=== PATIENT | female | born 1975 | race African-American/Black ===

== ENCOUNTER 2016-07-28 09:45 | Emergency (ER) | payer MEDICAID ==
[2016-07-28 14:10] LABS: Hematocrit 42 % (35-47); Hemoglobin 14.2 g/dl (12.0-16.0); Mean Corpuscular HGB Conc 34 g/dl (31-36); Mean Corpuscular Hemoglobin 30 pg (27-31); Mean Corpuscular Volume 89 fL (80-97); Mean Platelet Volume 7 um3 (7.4-10.4); Red Blood Count 4.75 10^6/ul (4.0-5.4); Red Cell Distribution Width 13 % (10.5-15); White Blood Count 8.6 10^3/ul (3.5-10.8)
[2016-07-28 14:13] LABS: Urine Bacteria Absent (Absent); Urine Bilirubin Negative (Negative); Urine Glucose Negative (Negative); Urine Nitrite Negative (Negative)
[2016-07-28 14:22] LABS: ALT 16 U/L (7-52); AST 17 U/L (13-39); Albumin 4.9 g/dL (3.2-5.2); Alkaline Phosphatase 56 U/L (34-104); Anion Gap 6 mmol/L (2-11); BUN/Creatinine Ratio 11.8 (8-20); Blood Urea Nitrogen 8 mg/dL (6-24); C Reactive Protein < 1.00 mg/L (< 5.00); CO2 Carbon Dioxide 31 mmol/L (22-32); Calcium 9.8 mg/dL (8.6-10.3); Chloride 99 mmol/L (101-111); EGFR African American 122.6 (>60); EGFR Non-African American 95.4 (>60); Globulin 3.7 g/dL (2-4); Glucose 83 mg/dL (70-100); Lipase 30 U/L (11.0-82.0); Potassium 3.1 mmol/L (3.5-5.0); Sodium 136 mmol/L (133-145); Total Protein 8.6 g/dL (6.4-8.9)
--- NOTE | 2016-07-28 14:25 | RAD ---
INDICATION: Right flank abdominal pain. COMPARISON: There are no prior studies available for comparison. TECHNIQUE: A CT scan of the abdomen and pelvis was performed without intravenous or oral contrast. Contiguous axial sections were obtained from the lung bases through the symphysis pubis. Images were reconstructed in the coronal and sagittal planes. FINDINGS: The lung bases are clear. No pleural effusion is present. The liver and spleen are normal in size without significant focal abnormality on this noncontrast study. The gallbladder appears contracted. No calcific gallstones are seen. The pancreas appears to be within normal limits. The adrenal glands and kidneys are normal in size. There is a small 2 mm calculus present in the upper pole of the right kidney no hydronephrosis is seen. No ureteral or bladder calculi are seen. The aorta is normal in caliber without significant calcific plaque. No significant enlarged retroperitoneal lymph nodes are seen. The stomach, small and large bowel appear nondistended. The appendix is within normal limits. There is mild descending and sigmoid diverticulosis without evidence for diverticulitis. There is a periumbilical hernia containing fat. The uterus is retroverted and mildly enlarged. No free intraperitoneal air or fluid is seen. No fracture is seen. IMPRESSION: SMALL NONOBSTRUCTING RIGHT RENAL CALCULUS, NO EVIDENCE FOR HYDRONEPHROSIS.
[2016-07-28] MEDS ORDERED: cefTRIAXone(*) 1 GM in NS 0.9% 50 ML* 50 ML IVPB ONE (15:10)
--- NOTE | 2016-07-28 17:22 | RAD ---
INDICATION: Right lower quadrant pain. COMPARISON: Comparison is made with a prior CT of the abdomen and pelvis of the same date. TECHNIQUE: Multiple real-time transabdominal images of the pelvis were obtained. FINDINGS: The uterus is mildly enlarged and heterogeneous in echogenicity. The uterus measured 10.7 x 4.6 x 5.7 cm. The endometrial echo is abnormally thickened measuring 1.7 cm in thickness. The right ovary measured 3.3 x 2.0 x 1.9 cm. The left ovary measured 3.2 x 2.0 x 2.4 cm. There is vascular flow within both ovaries. No free intraperitoneal fluid is seen. IMPRESSION: 1. MILDLY ENLARGED UTERUS. 2. ABNORMALLY THICKENED ENDOMETRIUM. RECOMMEND A FOLLOW-UP TRANSVAGINAL PELVIC ULTRASOUND IN ONE MONTHS TIME FOR FURTHER CHARACTERIZATION.
[2016-07-28] MEDS ORDERED: Potassium Chlor TAB* 20 MEQ TAB.ER PO ONE (17:31)
[2016-07-28] MEDS ORDERED: Sulfamethox/Trimethoprim DS 800/160* TAB PO ONE (17:31)
--- NOTE | 2016-07-28 17:37 | ED ---
Janny Pathak Erika, scribed for Germain Siddiqui MD on 07/28/16 at 1356 . GI/ HPI - HPI Summary HPI Summary: Patient is a 40-year-old female presenting to the ED with a CC of intermittent right flank and abdominal pain. Patient reports that she developed burning with urination and frequent urination about 6 days ago. Burning with urination has resolved, however patient then developed intermittent right flank pain, right- sided abdominal pain, and, less frequently, left-sided abdominal pain. She rates pain a 7/10, and states it was not alleviated by 600 mg ibuprofen. She declines pain medication at this time. Associated symptoms include nausea, decreased appetite, and constipation. Pt reports she had a small BM last night. She denies fever and blood in stool. LNMP 07/14/2016. Patient does report some yellow vaginal discharge, and states she is not concerned about STIs. Hx UTIs, kidney stones, HTN, HLD, GERD, depression, and asthma. Hx surgery for ectopic 3 years ago. - History of Current Complaint Chief Complaint: EDAbdPain Time Seen by Provider: 07/28/16 13:24 Stated Complaint: ABD PAIN Hx Obtained From: Patient Onset/Duration: Started Days Ago, Atraumatic, Still Present Timing: Intermittent Severity: Moderate Pain Intensity: 7 Location of Pain: RLQ, Flank - R Pain Radiates to: LLQ Associated Signs and Symptoms: Positive: Nausea, Constipation, Change in Appetite, UTI Symptoms. Negative: Blood w/Stool, Fever Additional Signs & Symptoms: Positive: Vaginal Discharge Alleviating Factor(s): Nothing - Allergy/Home Medications Allergies/Adverse Reactions: Allergies Allergy/AdvReac Type Severity Reaction Status Date / Time Hydrocodone Allergy Difficulty Verified 07/28/16 10:11 Breathing ENVIROMENTAL Allergy Difficulty Uncoded 07/28/16 10:09 Breathing PMH/Surg Hx/FS Hx/Imm Hx Cardiovascular History: Reports: Hx Hypercholesterolemia, Hx Hypertension Respiratory History: Reports: Hx Asthma GI History: Reports: Hx Gastroesophageal Reflux Disease History: Reports: Hx Kidney Stones, Other Problems/Disorders - UTIs Psychiatric History: Reports: Hx Depression Infectious Disease History: Denies: Traveled Outside the [place] in Last 30 Days - Family History Known Family History: Positive: Cardiac Disease, Hypertension, Diabetes - Social History Occupation: Unemployed Alcohol Use: Occasionally Hx Substance Use: No Substance Use Type: Reports: None Hx Tobacco Use: No Smoking Status (MU): Never Smoked Tobacco Review of Systems Negative: Fever Positive: Abdominal Pain, Nausea - with decreased appetite, Other - constipation Positive: burning - resolved, discharge - yellow vaginal, frequency, flank pain - R All Other Systems Reviewed And Are Negative: Yes Physical Exam Triage Information Reviewed: Yes Vital Signs On Initial Exam: Initial Vitals Temp Pulse Resp BP Pulse Ox 98.9 F 98 15 151/79 99 07/28/16 10:04 07/28/16 10:04 07/28/16 10:04 07/28/16 10:04 07/28/16 10:04 Vital Signs Reviewed: Yes Appearance: Positive: Well-Appearing, No Pain Distress Skin: Positive: Warm, Skin Color Reflects Adequate Perfusion, Dry Head/Face: Positive: Normal Head/Face Inspection Eyes: Positive: EOMI, LILIAN ENT: Positive: Normal ENT inspection Neck: Positive: Supple, Nontender Respiratory/Lung Sounds: Positive: Clear to Auscultation, Breath Sounds Present Cardiovascular: Positive: RRR Abdomen Description: Positive: Soft, Other: - Right flank tenderness. Mild right -sided abdominal tenderness with no rebound Bowel Sounds: Positive: Present Pelvic Exam: Positive: other - Normal, non-tender, no abnormal discharge Musculoskeletal: Positive: Normal, Strength/ROM Intact Neurological: Positive: Normal, Sensory/Motor Intact, Alert, Oriented to Person Place, Time Psychiatric: Positive: Affect/Mood Appropriate Diagnostics - Vital Signs Vital Signs Temp Pulse Resp BP Pulse Ox 07/28/16 13:04 97.7 F 85 18 133/81 98 07/28/16 11:28 98.4 F 90 17 141/84 98 07/28/16 10:04 98.9 F 98 15 151/79 99 - Laboratory Lab Results: Lab Results 07/28/16 07/28/16 07/28/16 Range/Units 11:34 13:35 13:35 WBC 8.6 (3.5-10.8) 10^3/ul RBC 4.75 (4.0-5.4) 10^6/ul Hgb 14.2 (12.0-16.0) g/dl Hct 42 (35-47) % MCV 89 (80-97) fL MCH 30 (27-31) pg MCHC 34 (31-36) g/dl RDW 13 (10.5-15) % Plt Count 345 (150-450) 10^3/ul MPV 7 L (7.4-10.4) um3 Neut % (Auto) 58.4 (38-83) % Lymph % (Auto) 34.6 (25-47) % Leslie % (Auto) 5.6 (1-9) % Eos % (Auto) 1.0 (0-6) % Baso % (Auto) 0.4 (0-2) % Absolute Neuts (auto) 5.0 (1.5-7.7) 10^3/ul Absolute Lymphs (auto) 3.0 (1.0-4.8) 10^3/ul Absolute Monos (auto) 0.5 (0-0.8) 10^3/ul Absolute Eos (auto) 0.1 (0-0.6) 10^3/ul Absolute Basos (auto) 0 (0-0.2) 10^3/ul Absolute Nucleated RBC 0.01 10^3/ul Nucleated RBC % 0.1 INR (Anticoag Therapy) 0.95 (0.89-1.11) APTT 28.3 (26.0-36.3) seconds Sodium (133-145) mmol/L Potassium (3.5-5.0) mmol/L Chloride (101-111) mmol/L Carbon Dioxide (22-32) mmol/L Anion Gap (2-11) mmol/L BUN (6-24) mg/dL Creatinine (0.51-0.95) mg/dL Est GFR ( Amer) (>60) Est GFR (Non-Af Amer) (>60) BUN/Creatinine Ratio (8-20) Glucose (70-100) mg/dL Lactic Acid (0.5-2.0) mmol/L Calcium (8.6-10.3) mg/dL Total Bilirubin (0.2-1.0) mg/dL AST (13-39) U/L ALT (7-52) U/L Alkaline Phosphatase (34-104) U/L C-Reactive Protein (< 5.00) mg/L Total Protein (6.4-8.9) g/dL Albumin (3.2-5.2) g/dL Globulin (2-4) g/dL Albumin/Globulin Ratio (1-3) Lipase (11.0-82.0) U/L Beta HCG, Quant mIU/mL Urine Color Yellow Urine Appearance Cloudy Urine pH 7.0 (5-9) Ur Specific [place] 1.012 (1.010-1.030) Urine Protein Negative (Negative) Urine Ketones Trace H (Negative) Urine Blood 1+ H (Negative) Urine Nitrate Negative (Negative) Urine Bilirubin Negative (Negative) Urine Urobilinogen Negative (Negative) Ur Leukocyte Esterase 3+ H (Negative) Urine WBC (Auto) 3+(>20/hpf) H (Absent) Urine RBC (Auto) Trace(0-2/hpf) (Absent) Ur Squamous Epith Cells Present H (Absent) Urine Bacteria Absent (Absent) Urine Glucose Negative (Negative) 07/28/16 07/28/16 Range/Units 13:35 13:35 WBC (3.5-10.8) 10^3/ul RBC (4.0-5.4) 10^6/ul Hgb (12.0-16.0) g/dl Hct (35-47) % MCV (80-97) fL MCH (27-31) pg MCHC (31-36) g/dl RDW (10.5-15) % Plt Count (150-450) 10^3/ul MPV (7.4-10.4) um3 Neut % (Auto) (38-83) % Lymph % (Auto) (25-47) % Leslie % (Auto) (1-9) % Eos % (Auto) (0-6) % Baso % (Auto) (0-2) % Absolute Neuts (auto) (1.5-7.7) 10^3/ul Absolute Lymphs (auto) (1.0-4.8) 10^3/ul Absolute Monos (auto) (0-0.8) 10^3/ul Absolute Eos (auto) (0-0.6) 10^3/ul Absolute Basos (auto) (0-0.2) 10^3/ul Absolute Nucleated RBC 10^3/ul Nucleated RBC % INR (Anticoag Therapy) (0.89-1.11) APTT (26.0-36.3) seconds Sodium 136 (133-145) mmol/L Potassium 3.1 L (3.5-5.0) mmol/L Chloride 99 L (101-111) mmol/L Carbon Dioxide 31 (22-32) mmol/L Anion Gap 6 (2-11) mmol/L BUN 8 (6-24) mg/dL Creatinine 0.68 (0.51-0.95) mg/dL Est GFR ( Amer) 122.6 (>60) Est GFR (Non-Af Amer) 95.4 (>60) BUN/Creatinine Ratio 11.8 (8-20) Glucose 83 (70-100) mg/dL Lactic Acid 0.8 (0.5-2.0) mmol/L Calcium 9.8 (8.6-10.3) mg/dL Total Bilirubin 0.60 (0.2-1.0) mg/dL AST 17 (13-39) U/L ALT 16 (7-52) U/L Alkaline Phosphatase 56 (34-104) U/L C-Reactive Protein < 1.00 (< 5.00) mg/L Total Protein 8.6 (6.4-8.9) g/dL Albumin 4.9 (3.2-5.2) g/dL Globulin 3.7 (2-4) g/dL Albumin/Globulin Ratio 1.3 (1-3) Lipase 30 (11.0-82.0) U/L Beta HCG, Quant < 0.60 mIU/mL Urine Color Urine Appearance Urine pH (5-9) Ur Specific [place] (1.010-1.030) Urine Protein (Negative) Urine Ketones (Negative) Urine Blood (Negative) Urine Nitrate (Negative) Urine Bilirubin (Negative) Urine Urobilinogen (Negative) Ur Leukocyte Esterase (Negative) Urine WBC (Auto) (Absent) Urine RBC (Auto) (Absent) Ur Squamous Epith Cells (Absent) Urine Bacteria (Absent) Urine Glucose (Negative) Result Diagrams: 07/28/16 13:35 07/28/16 13:35 Lab Statement: Any lab studies that have been ordered have been reviewed, and results considered in the medical decision making process. - CT CT A/P CT Interpretation Completed By: Radiologist - IMPRESSION: SMALL NONOBSTRUCTING RIGHT RENAL CALCULUS, NO EVIDENCE FOR HYDRONEPHROSIS. - Ultrasound No standard instances Ultrasound Interpretation Completed By: Radiologist - Pelvic US - IMPRESSION: 1. MILDLY ENLARGED UTERUS. 2. ABNORMALLY THICKENED ENDOMETRIUM. RECOMMEND A FOLLOW-UP TRANSVAGINAL PELVIC ULTRASOUND IN ONE MONTHS TIME FOR FURTHER CHARACTERIZATION. Re-Evaluation - Re-Evaluation First Eval Re-Evaluation Time: 14:54 Comment: Discussed lab and imaging results with patient. Will perform pelvic exam Second Eval Re-Evaluation Time: 17:27 Comment: Discussed additional results with patient GIGU Course/Dx - Course Course Of Treatment: NO CRITICAL CARE TIME Assessment/Plan: VAGINAL SWABS PENDING AT DISCHARGE. PATIENT WILL NEED THESE RESULTS AND TREATMENT IF POSITIVE. RX BACTRIM FOR UTI. F/U WITH PMD SCHEDULED FOR 08/12/16. SHE WILL CALL HER PMD TO OBTAIN THE VAGINAL SWAB RESULTS. DISCHARGE HOME STABLE. - Diagnoses Provider Diagnoses: Abdominal pain, UTI (urinary tract infection) Discharge - Discharge Plan Condition: Stable Disposition: HOME Patient Education Materials: Abdominal Pain (ED), Urinary Tract Infection in Women (ED) Referrals: No Primary Care Phys,NOPCP [Primary Care Provider] - Additional Instructions: FOLLOW UP WITH YOUR DOCTOR SCHEDULED. DISCUSS YOUR ULTRASOUND RESULTS WITH YOUR DOCTOR TO GET A REPEAT ULTRASOUND IN ONE MONTH. YOU STILL HAVE VAGINAL SWAB LAB RESULTS PENDING. CALL YOU DOCTOR TO OBTAIN THESE RESULTS. RETURN TO THE EMERGENCY DEPARTMENT FOR ANY WORSENING OF YOUR CONDITION; PAIN, FEVER, YOU FEEL ILL OR QUESTIONS OR CONCERNS. The documentation as recorded by the Janny milner Erika accurately reflects the service I personally performed and the decisions made by me, Germain Siddiqui MD.
[2016-07-28 18:04] VITALS: BP 144/77
--- NOTE | 2016-07-30 16:35 | ED ---
Progress - Progress Note Progress Note: Pt's vaginal cx reveals BV - she was d/c'd w/ bactrim for UTI/stones. She reports no change in sx - will start flagyl and have her f/u w/ PCP. Education about causes for BV and prevention - pt admits she's been changing sanitary products frequently and hormones are shifting - will take preventative measures for future care. Also reviewed danger s/sx of when to return to ED - pt agrees w / plan. Flagyl to [facility]. Re-Evaluation - Re-Evaluation First Eval Re-Evaluation Time: 14:54 Comment: Discussed lab and imaging results with patient. Will perform pelvic exam Second Eval Re-Evaluation Time: 17:27 Comment: Discussed additional results with patient Course/Dx - Course Course Of Treatment: NO CRITICAL CARE TIME - Diagnoses Provider Diagnoses: Abdominal pain, UTI (urinary tract infection)
== END 2016-07-28 18:03 | disposition home or self-care (01) ==
LOC: ED 09:45
DX: N39.0 Urinary tract infection, site not specified (principal); R11.0 Nausea; R10.30 Lower abdominal pain, unspecified; K59.00 Constipation, unspecified
CPT/HCPCS: 36415; 74176; 76856; 80053; 81003; 81015; 83605; 83690; 84702; 85025; 85610; 85730; 86140; 87086; 87480; 87491; 87510; 87591; 87661; 99283; A9270-GY; J0696

== ENCOUNTER 2017-05-05 17:22 | Emergency (ER) | payer OTHER ==
[2017-05-05] MEDS ORDERED: NS 0.9% 1000 ML* 1,000 ML IV ONE (18:57)
[2017-05-05] MEDS ORDERED: Ondansetron INJ* 2 MG/ML VIAL IV ONE (18:57)
[2017-05-05 19:13] LABS: ABS Basophils 0.1 10^3/ul (0-0.2); ABS Eosinophils 0.2 10^3/ul (0-0.6); ABS Lymphocytes 2.1 10^3/ul (1.0-4.8); ABS Monocytes 0.4 10^3/ul (0-0.8); ABS Neutrophils 4.8 10^3/ul (1.5-7.7); ABS Nucleated RBC 0 10^3/ul; Eosinophil % 2.7 % (0-6); Hematocrit 41 % (35-47); Hemoglobin 13.9 g/dl (12.0-16.0); Lymphocyte % 28.2 % (25-47); Mean Corpuscular HGB Conc 34 g/dl (31-36); Mean Corpuscular Hemoglobin 30 pg (27-31); Mean Corpuscular Volume 90 fL (80-97); Mean Platelet Volume 6 um3 (7.4-10.4); Nucleated Red Blood Cells % 0.1; Platelet Count 383 10^3/ul (150-450); Red Blood Count 4.57 10^6/ul (4.0-5.4); Red Cell Distribution Width 13 % (10.5-15); White Blood Count 7.6 10^3/ul (3.5-10.8)
--- NOTE | 2017-05-05 19:22 | RAD ---
INDICATION: Near syncope. COMPARISON: There are no prior studies available for comparison. TECHNIQUE: Contiguous axial sections of the brain were obtained from the skull base to the vertex without contrast. FINDINGS: The ventricles, cisterns and sulci are within normal limits. There is a cavum vergae present consistent with normal variation. No significant focal abnormality or mass effect is seen. There is no evidence for hemorrhage. No significant focal osseous abnormality is seen. The visualized portion of the paranasal sinuses and mastoid air cells appear clear. IMPRESSION: NO EVIDENCE FOR ACUTE INTRACRANIAL ABNORMALITY.
[2017-05-05 19:30] LABS: EGFR Non-African American 94.9 (>60)
[2017-05-05] MEDS ORDERED: Ondansetron ODT TAB* 4 MG PO ONE (20:43)
[2017-05-05 21:17] VITALS: BP 133/85
--- NOTE | 2017-05-06 10:41 | ED ---
Tyler Pathak Jennifer, scribed for Reji Richey MD on 05/05/17 at 1852 . Syncope/Near Syncope - HPI Summary HPI Summary: The patient is a 41 year old female who presents to the ED with two episodes of near syncope that happened about one hour ago. The patient describes that she was sitting down eating pizza when the room suddenly started spinning, and it appeared that the pizza was floating. She adds that it felt like her brain was heavy and shifted from the front to the back. The patient describes that during the first episode she felt pressure on her whole head, whereas during the second episode she felt a vibrating sensation on just her left side. The pressure is mainly on the left now. She additionally complains of nausea, dizziness, and a need to vomit but not being able to. The patient denies problems with her vision or walking. - History Of Current Complaint Chief Complaint: EDSyncope Time Seen by Provider: 05/05/17 18:23 Hx Obtained From: Patient Onset/Duration: Sudden Onset, Lasting Minutes, Still Present Timing: Intermittent Episode Lasting - two episodes lasting about five minutes each Context: Witnessed Activity At Onset: Other - Sitting down eating pizza Associated Head Trauma: No Aggravating Factor(s): Nothing Alleviating Factor(s): Nothing Associated Signs And Symptoms: Other - nausea, dizziness - Allergies/Home Medications Allergies/Adverse Reactions: Allergies Allergy/AdvReac Type Severity Reaction Status Date / Time Hydrocodone [Hydrocodone] Allergy Difficulty Verified 05/05/17 17:29 Breathing ENVIROMENTAL Allergy Difficulty Uncoded 07/28/16 10:09 Breathing Home Medications: Home Medications Aspirin EC Low Dose* [Ecotrin EC Low Dose 81 MG*] 81 mg PO DAILY 05/05/17 [ History Confirmed 05/05/17] Atorvastatin* [Lipitor*] 40 mg PO DAILY 05/05/17 [History Confirmed 05/05/17] Methyldopa TAB* [Aldomet TAB*] 250 mg PO DAILY 05/05/17 [History Confirmed 05/05] Sertraline* [Zoloft*] 25 mg PO DAILY 05/05/17 [History Confirmed 05/05/17] Sertraline* [Zoloft*] 50 mg PO DAILY 05/05/17 [History Confirmed 05/05/17] amLODIPine TAB* [Norvasc 5 mg TAB*] 10 mg PO DAILY 05/05/17 [History Confirmed 05/05/17] PMH/Surg Hx/FS Hx/Imm Hx Cardiovascular History: Reports: Hx Angina, Hx Hypercholesterolemia, Hx Hypertension Respiratory History: Reports: Hx Asthma GI History: Reports: Hx Gastroesophageal Reflux Disease History: Reports: Hx Kidney Stones, Other Problems/Disorders - UTIs Psychiatric History: Reports: Hx Anxiety, Hx Depression - Surgical History Surgery Procedure, Year, and Place: EPTOPIC 2013 - Immunization History Date of Influenza Vaccine: 01/2017 Immunizations Up to Date: Yes Infectious Disease History: No Infectious Disease History: Denies: Traveled Outside the [place] in Last 30 Days - Family History Known Family History: Positive: Cardiac Disease, Hypertension, Diabetes - Social History Alcohol Use: Occasionally Hx Substance Use: No Substance Use Type: Reports: None Hx Tobacco Use: No Smoking Status (MU): Never Smoked Tobacco Review of Systems Positive: Vomiting, Nausea Neurological: Other - Dizziness Positive: Syncope All Other Systems Reviewed And Are Negative: Yes Physical Exam - Summary Physical Exam Summary: Appearance: The patient is well-nourished in no acute distress and in no acute pain. Skin: The skin is warm and dry and skin color reflects adequate perfusion. HEENT: ~The head is normocephalic and atraumatic. The pupils are equal and reactive. The conjunctivae are clear and without drainage. ~Nares are patent and without drainage. ~Mouth reveals moist mucous membranes and the throat is without erythema and exudate. ~The external ears are intact. The ear canals are patent and without drainage. The tympanic membranes are intact. Neck: the neck is supple with full range of motion and non-tender. There are no carotid bruits. ~There is no neck vein distension. Respiratory: Chest is non-tender. ~Lungs are clear to auscultation and breath sounds are symmetrical and equal. Cardiovascular: Heart is regular rate and rhythm. ~There is no murmur or rub auscultated. ~~There is no peripheral edema and pulses are symmetrical and equal. Abdomen: The abdomen is soft and non-tender. ~There are normal bowel sounds heard in all four quadrants and there is no organomegaly palpated. Musculoskeletal: There is no back tenderness noted. ~Extremities are non-tender with full range of motion. ~There is good capillary refill. ~There is no peripheral edema or calf tenderness elicited. Neurological: Patient is alert and oriented to person, place and time. ~The patient has symmetrical motor strength in all four extremities. ~Cranial nerves are grossly intact. Deep tendon reflexes are symmetrical and equal in all four extremities. Psychiatric: The patient has an appropriate affect and does not exhibit any anxiety or depression. GCS: 15 Triage Information Reviewed: Yes Vital Signs On Initial Exam: Initial Vitals Temp Pulse Resp BP Pulse Ox 98.8 F 73 20 142/92 99 05/05/17 17:23 05/05/17 17:23 05/05/17 17:23 05/05/17 17:23 05/05/17 17:23 Vital Signs Reviewed: Yes Diagnostics - Vital Signs Vital Signs Temp Pulse Resp BP Pulse Ox 05/05/17 17:23 98.8 F 73 20 142/92 99 - Laboratory Lab Results: Lab Results 05/05/17 05/05/17 05/05/17 Range/Units 19:03 19:03 19:03 WBC 7.6 (3.5-10.8) 10^3/ul RBC 4.57 (4.0-5.4) 10^6/ul Hgb 13.9 (12.0-16.0) g/dl Hct 41 (35-47) % MCV 90 (80-97) fL MCH 30 (27-31) pg MCHC 34 (31-36) g/dl RDW 13 (10.5-15) % Plt Count 383 (150-450) 10^3/ul MPV 6 L (7.4-10.4) um3 Neut % (Auto) 63.3 (38-83) % Lymph % (Auto) 28.2 (25-47) % Gray % (Auto) 5.1 (1-9) % Eos % (Auto) 2.7 (0-6) % Baso % (Auto) 0.7 (0-2) % Absolute Neuts (auto) 4.8 (1.5-7.7) 10^3/ul Absolute Lymphs (auto) 2.1 (1.0-4.8) 10^3/ul Absolute Monos (auto) 0.4 (0-0.8) 10^3/ul Absolute Eos (auto) 0.2 (0-0.6) 10^3/ul Absolute Basos (auto) 0.1 (0-0.2) 10^3/ul Absolute Nucleated RBC 0 10^3/ul Nucleated RBC % 0.1 Sodium 139 (133-145) mmol/L Potassium 3.3 L (3.5-5.0) mmol/L Chloride 101 (101-111) mmol/L Carbon Dioxide 31 (22-32) mmol/L Anion Gap 7 (2-11) mmol/L BUN 8 (6-24) mg/dL Creatinine 0.68 (0.51-0.95) mg/dL Est GFR ( Amer) 122.0 (>60) Est GFR (Non-Af Amer) 94.9 (>60) BUN/Creatinine Ratio 11.8 (8-20) Glucose 97 (70-100) mg/dL Lactic Acid 0.7 (0.5-2.0) mmol/L Calcium 9.5 (8.6-10.3) mg/dL Magnesium 2.2 (1.9-2.7) mg/dL Total Bilirubin 0.70 (0.2-1.0) mg/dL AST 17 (13-39) U/L ALT 17 (7-52) U/L Alkaline Phosphatase 62 (34-104) U/L Troponin I 0.00 (<0.04) ng/mL Total Protein 8.0 (6.4-8.9) g/dL Albumin 4.7 (3.2-5.2) g/dL Globulin 3.3 (2-4) g/dL Albumin/Globulin Ratio 1.4 (1-3) TSH 1.47 (0.34-5.60) mcIU/mL 05/05/17 Range/Units 20:55 WBC (3.5-10.8) 10^3/ul RBC (4.0-5.4) 10^6/ul Hgb (12.0-16.0) g/dl Hct (35-47) % MCV (80-97) fL MCH (27-31) pg MCHC (31-36) g/dl RDW (10.5-15) % Plt Count (150-450) 10^3/ul MPV (7.4-10.4) um3 Neut % (Auto) (38-83) % Lymph % (Auto) (25-47) % [place] % (Auto) (1-9) % Eos % (Auto) (0-6) % Baso % (Auto) (0-2) % Absolute Neuts (auto) (1.5-7.7) 10^3/ul Absolute Lymphs (auto) (1.0-4.8) 10^3/ul Absolute Monos (auto) (0-0.8) 10^3/ul Absolute Eos (auto) (0-0.6) 10^3/ul Absolute Basos (auto) (0-0.2) 10^3/ul Absolute Nucleated RBC 10^3/ul Nucleated RBC % Sodium (133-145) mmol/L Potassium (3.5-5.0) mmol/L Chloride (101-111) mmol/L Carbon Dioxide (22-32) mmol/L Anion Gap (2-11) mmol/L BUN (6-24) mg/dL Creatinine (0.51-0.95) mg/dL Est GFR ( Amer) (>60) Est GFR (Non-Af Amer) (>60) BUN/Creatinine Ratio (8-20) Glucose (70-100) mg/dL Lactic Acid (0.5-2.0) mmol/L Calcium (8.6-10.3) mg/dL Magnesium (1.9-2.7) mg/dL Total Bilirubin (0.2-1.0) mg/dL AST (13-39) U/L ALT (7-52) U/L Alkaline Phosphatase (34-104) U/L Troponin I 0.00 (<0.04) ng/mL Total Protein (6.4-8.9) g/dL Albumin (3.2-5.2) g/dL Globulin (2-4) g/dL Albumin/Globulin Ratio (1-3) TSH (0.34-5.60) mcIU/mL Result Diagrams: 05/05/17 19:03 05/05/17 19:03 Lab Statement: Any lab studies that have been ordered have been reviewed, and results considered in the medical decision making process. - CT Brain CT CT Interpretation Completed By: Radiologist - NO EVIDENCE FOR ACUTE INTRACRANIAL ABNORMALITY. ED physician has reviewed this radiology report. - EKG 1720 Cardiac Rate: NL EKG Rhythm: Sinus Rhythm - 74 bpm EKG Interpretation: LVH with strain Re-Evaluation - Re-Evaluation First Eval Re-Evaluation Time: 20:42 Change: Improved Comment: Pt feels better. Discussed discharge plan with the pt. Course/Dx Course Of Treatment: Ms. Rivera has been feeling unwell for several days with nausea and decreased appetite. Today she experienced two near syncopal episodes although the descriptions are atypical. Her W/U was negative and she felt much improved with zofran and IV NS. This is likely a virus and I will treat her symptomatically. - Diagnoses Differential Diagnosis/HQI/PQRI: Positive: Other - near syncope and dehydration Provider Diagnoses: Near syncope, Dehydration Discharge - Discharge Plan Condition: Stable Disposition: HOME Prescriptions: Ondansetron ODT TAB* [Zofran Odt TAB*] 4 mg PO Q6H PRN #20 tab.odt PRN Reason: Nausea/Vomiting Patient Education Materials: Dehydration (ED), Near Syncope (ED) Referrals: Dana Black MD [Primary Care Provider] - (Follow up with your PCP next week if not improved.) Additional Instructions: Follow up with your PCP next week if your symptoms do not improve. The documentation as recorded by the Tyler milner Jennifer accurately reflects the service I personally performed and the decisions made by me, Reji Richey MD.
== END 2017-05-05 21:15 | disposition home or self-care (01) ==
LOC: ED 17:22
DX: R55 Syncope and collapse (principal); E86.0 Dehydration; Z88.5 Allergy status to narcotic agent
CPT/HCPCS: 36415; 70450; 80053; 83605; 83735; 84443; 84484; 85025; 93005; 96361; 96374; 99282; J2405

== ENCOUNTER 2017-06-22 03:48 | Emergency (ER) | payer OTHER ==
[2017-06-22] MEDS ORDERED: Morphine INJ* 4 MG/ML 1 ML SYRINGE (NEW SYRINGE VERSION) IV ONE (04:19)
[2017-06-22] MEDS ORDERED: Metoclopramide IV* 5 MG/ML 2 ML VIAL IV SLOW PU ONE (04:19)
[2017-06-22] MEDS ORDERED: Aspirin 81 mg CHEW TAB* 81 MG TAB.CHEW PO ONE (04:20)
[2017-06-22 04:33] LABS: ABS Basophils 0 10^3/ul (0-0.2); ABS Eosinophils 0.2 10^3/ul (0-0.6); ABS Lymphocytes 1.8 10^3/ul (1.0-4.8); ABS Monocytes 0.5 10^3/ul (0-0.8); ABS Neutrophils 6.6 10^3/ul (1.5-7.7); ABS Nucleated RBC 0 10^3/ul; Eosinophil % 2.1 % (0-6); Hematocrit 37 % (35-47); Hemoglobin 12.8 g/dl (12.0-16.0); Lymphocyte % 19.3 % (25-47); Mean Corpuscular HGB Conc 35 g/dl (31-36); Mean Corpuscular Hemoglobin 31 pg (27-31); Mean Corpuscular Volume 90 fL (80-97); Mean Platelet Volume 7 um3 (7.4-10.4); Nucleated Red Blood Cells % 0; Platelet Count 335 10^3/ul (150-450); Red Blood Count 4.12 10^6/ul (4.0-5.4); Red Cell Distribution Width 13 % (10.5-15); White Blood Count 9.1 10^3/ul (3.5-10.8)
[2017-06-22 04:45] LABS: EGFR Non-African American 93.3 (>60)
[2017-06-22 05:03] LABS: INR 0.96 (0.77-1.02)
[2017-06-22] MEDS ORDERED: Potassium Chlor TAB* 20 MEQ TAB.ER PO ONE ×2 (05:43)
[2017-06-22 05:57] VITALS: BP 117/69
--- NOTE | 2017-06-22 08:04 | RAD ---
INDICATION: Chest pain. COMPARISON: There are no prior studies available for comparison. TECHNIQUE: A portable view of the chest was obtained. FINDINGS: Cardiac and mediastinal contours appear to be within normal limits. The lungs are clear. No pleural effusion is seen. IMPRESSION: NO EVIDENCE FOR ACUTE DISEASE.
--- NOTE | 2017-07-08 02:00 | ED ---
Steph Pathak Thomas, scribed for Bibi Romo MD on 06/22/17 at 0455 . HPI Chest Pain - HPI Summary HPI Summary: The patient is a 41 year old female brought in by ambulance complaining of right -sided chest pain for past two hours. She complains of numbness to her jaw and fingers. She was given NTG x 1 and ASA 324 prior to arrival, to no relief of pain. She has a history of angina and has prior stress tests. - History of Current Complaint Chief Complaint: EDChestWallPain Time Seen by Provider: 06/22/17 03:50 Hx Obtained From: Patient Onset/Duration: Started Hours Ago, Still Present Timing: Constant Current Severity: Moderate Pain Intensity: 5 Pain Scale Used: 0-10 Numeric Chest Pain Location: Discrete at: - right-sided Chest Pain Radiates: Yes Chest Pain Radiates To:: Jaw, Other - [place] Aggravating Factor(s): Other: - Palpation Alleviating Factor(s): Nothing Associated Signs and Symptoms: Positive: Chest Pain. Negative: Fever Related History: Obesity - Allergy/Home Medications Allergies/Adverse Reactions: Allergies Allergy/AdvReac Type Severity Reaction Status Date / Time lidocaine Allergy Difficulty Verified 06/22/17 04:34 Breathing MS Hydrocodone [Hydrocodone] Allergy Difficulty Verified 05/05/17 17:29 Breathing ENVIROMENTAL Allergy Difficulty Uncoded 07/28/16 10:09 Breathing PMH/Surg Hx/FS Hx/Imm Hx Cardiovascular History: Reports: Hx Angina, Hx Hypercholesterolemia, Hx Hypertension Respiratory History: Reports: Hx Asthma GI History: Reports: Hx Gastroesophageal Reflux Disease History: Reports: Hx Kidney Stones, Other Problems/Disorders - UTIs Psychiatric History: Reports: Hx Anxiety, Hx Depression - Surgical History Surgery Procedure, Year, and Place: EPTOPIC 2013 - Immunization History Date of Influenza Vaccine: 01/2017 Infectious Disease History: No Infectious Disease History: Denies: Traveled Outside the [place] in Last 30 Days - Family History Known Family History: Positive: Cardiac Disease, Hypertension, Diabetes - Social History Alcohol Use: Occasionally Hx Substance Use: No Substance Use Type: Reports: None Hx Tobacco Use: No Smoking Status (MU): Never Smoked Tobacco Review of Systems Negative: Fever Positive: Chest Pain All Other Systems Reviewed And Are Negative: Yes Physical Exam - Summary Physical Exam Summary: VITAL SIGNS: Reviewed. GENERAL: Patient is a well-developed and nourished female who is lying comfortable in the stretcher. Patient is not in any acute respiratory distress. HEAD AND FACE: No signs of trauma. No ecchymosis, hematomas or skull depressions. No sinus tenderness. EYES: PERRLA, EOMI x 2, No injected conjunctiva, no nystagmus. EARS: Hearing grossly intact. Ear canals and tympanic membranes are within normal limits. MOUTH: Oropharynx within normal limits. NECK: Supple, trachea is midline, no adenopathy, no JVD, no carotid bruit, no c- spine tenderness, neck with full ROM. CHEST: Symmetric, no tenderness at palpation LUNGS: Clear to auscultation bilaterally. No wheezing or crackles. CVS: Regular rate and rhythm, S1 and S2 present, no murmurs or gallops appreciated. ABDOMEN: Soft, non-tender. No signs of distention. No rebound no guarding, and no masses palpated. Bowel sounds are normal. EXTREMITIES: FROM in all major joints, no edema, no cyanosis or clubbing. NEURO: Alert and oriented x 3. No acute neurological deficits. Speech is normal and follows commands. SKIN: Dry and warm Triage Information Reviewed: Yes Vital Signs On Initial Exam: Initial Vitals Temp Pulse Resp BP Pulse Ox 99 F 84 20 138/74 98 06/22/17 03:49 06/22/17 03:49 06/22/17 03:49 06/22/17 03:49 06/22/17 03:49 Vital Signs Reviewed: Yes Diagnostics - Vital Signs Vital Signs Temp Pulse Resp BP Pulse Ox 06/22/17 04:32 18 06/22/17 03:49 99 F 84 20 138/74 98 - Laboratory Lab Results: Lab Results 06/22/17 06/22/17 06/22/17 Range/Units 04:02 04:02 04:02 WBC 9.1 (3.5-10.8) 10^3/ul RBC 4.12 (4.0-5.4) 10^6/ul Hgb 12.8 (12.0-16.0) g/dl Hct 37 (35-47) % MCV 90 (80-97) fL MCH 31 (27-31) pg MCHC 35 (31-36) g/dl RDW 13 (10.5-15) % Plt Count 335 (150-450) 10^3/ul MPV 7 L (7.4-10.4) um3 Neut % (Auto) 72.8 (38-83) % Lymph % (Auto) 19.3 L (25-47) % [place] % (Auto) 5.6 (0-7) % Eos % (Auto) 2.1 (0-6) % Baso % (Auto) 0.2 (0-2) % Absolute Neuts (auto) 6.6 (1.5-7.7) 10^3/ul Absolute Lymphs (auto) 1.8 (1.0-4.8) 10^3/ul Absolute Monos (auto) 0.5 (0-0.8) 10^3/ul Absolute Eos (auto) 0.2 (0-0.6) 10^3/ul Absolute Basos (auto) 0 (0-0.2) 10^3/ul Absolute Nucleated RBC 0 10^3/ul Nucleated RBC % 0 Sodium 137 (133-145) mmol/L Potassium 2.9 L (3.5-5.0) mmol/L Chloride 101 (101-111) mmol/L Carbon Dioxide 28 (22-32) mmol/L Anion Gap 8 (2-11) mmol/L BUN 11 (6-24) mg/dL Creatinine 0.69 (0.51-0.95) mg/dL Est GFR ( Amer) 120.0 (>60) Est GFR (Non-Af Amer) 93.3 (>60) BUN/Creatinine Ratio 15.9 (8-20) Glucose 119 H (70-100) mg/dL Calcium 9.2 (8.6-10.3) mg/dL Magnesium 1.8 L (1.9-2.7) mg/dL Total Bilirubin 0.70 (0.2-1.0) mg/dL AST 20 (13-39) U/L ALT 34 (7-52) U/L Alkaline Phosphatase 47 (34-104) U/L Total Creatine Kinase 68 (10-223) U/L Troponin I 0.00 (<0.04) ng/mL B-Natriuretic Peptide 22 ( - 100) pg/mL Total Protein 6.9 (6.4-8.9) g/dL Albumin 4.2 (3.2-5.2) g/dL Globulin 2.7 (2-4) g/dL Albumin/Globulin Ratio 1.6 (1-3) Result Diagrams: 06/22/17 04:02 06/22/17 04:02 Lab Statement: Any lab studies that have been ordered have been reviewed, and results considered in the medical decision making process. - Radiology CXR Xray Interpretation: No Acute Changes - No acute process. Pending official report. Radiology Interpretation Completed By: ED Physician - EKG 04:08 Cardiac Rate: NL EKG Rhythm: Sinus Rhythm - at 83 BPM EKG Interpretation: ST depressions with T-wave inverions in inferior leads. EKG Comparison: Other - ST depressions with T-wave inverions in inferior leads. This is old comapred to 05/05/17. Re-Evaluation - Re-Evaluation First Eval Re-Evaluation Time: 05:40 Comment: Patient will be discharged. Chest Pain Course/Dx - Course Assessment/Plan: The patient is a 41 year old female brought in by ambulance complaining of right-sided chest pain. The patient was given ASA, Reglan, and morphine. Bloodwork was obtained. EKG shows ST depressions with T-wave inversions in inferior leads, which are old. CXR shows no acute process. The patient will be discharged to follow up with primary care. - Diagnoses Provider Diagnoses: Chest wall pain Discharge - Sign-Out/Discharge Documenting (check all that apply): Discharge - Discharge Plan Condition: Stable Disposition: HOME Patient Education Materials: Chest Wall Pain (ED) Referrals: Dana Black MD [Primary Care Provider] - 3 Days Additional Instructions: Follow up with your primary care physician in three days. Return to the emergency department for any new or worsening symptoms. The documentation as recorded by the Steph milner Thomas accurately reflects the service I personally performed and the decisions made by , Bibi Romo MD.
== END 2017-06-22 06:08 | disposition home or self-care (01) ==
LOC: ED 03:48
DX: R07.89 Other chest pain (principal); E66.9 Obesity, unspecified
CPT/HCPCS: 36415; 71045; 80053; 82550; 83735; 83880; 84484; 85025; 85379; 85610; 85730; 93005; 96374; 96375; 99285; A9270-GY; J2270; J2765

== ENCOUNTER 2017-08-05 10:54 | Emergency (ER) | payer OTHER ==
[2017-08-05] MEDS ORDERED: diPHENhydraMINE IV* 50 MG/ML 1 ml VIAL (BENADRYL) IV ONE (11:38)
[2017-08-05] MEDS ORDERED: NS 0.9% 1000 ML* 1,000 ML IV ONE (11:38)
[2017-08-05] MEDS ORDERED: Meclizine TAB* 12.5 MG PO ONE (11:38)
[2017-08-05 12:22] LABS: EGFR Non-African American 105.6 (>60)
[2017-08-05 12:34] LABS: ABS Basophils 0 10^3/ul (0-0.2); ABS Eosinophils 0.2 10^3/ul (0-0.6); ABS Lymphocytes 1.7 10^3/ul (1.0-4.8); ABS Monocytes 0.3 10^3/ul (0-0.8); ABS Neutrophils 3.1 10^3/ul (1.5-7.7); ABS Nucleated RBC 0 10^3/ul; Eosinophil % 2.9 % (0-6); Hematocrit 38 % (35-47); Lymphocyte % 31.9 % (25-47); Mean Corpuscular HGB Conc 34 g/dl (31-36); Mean Corpuscular Hemoglobin 31 pg (27-31); Mean Corpuscular Volume 90 fL (80-97); Mean Platelet Volume 6.7 um3 (7.4-10.4); Nucleated Red Blood Cells % 0.1; Platelet Count 349 10^3/ul (150-450); Red Blood Count 4.25 10^6/ul (4.0-5.4); Red Cell Distribution Width 13 % (10.5-15); White Blood Count 5.3 10^3/ul (3.5-10.8)
[2017-08-05 13:35] VITALS: BP 118/73
--- NOTE | 2017-08-05 17:42 | ED ---
Gigi Pathak Gabriel, scribed for Colby Mosquera MD on 08/05/17 at 1140 . Syncope/Near Syncope - HPI Summary HPI Summary: This patient is a 41 year old F BIBA to [facility] s/p near syncopal episode that occurred yesterday. Pt states yesterday she felt light headed, at this time she took NTG for her angina which she was having at this time, the symptoms she is having now are still left over from this episode. She describes the episode as the room was spinning and white vision. The patient rates the pain 7/10 in severity. Patient reports chest pressure, left sided facial numbness, left sided BRAGG, and SOB. Pt denies LOC. Pt has frequent syncopal episodes and sees cardiology for this, she also takes potassium for hypokalemia. She is currently menstruating She has had two heart catheterizations recently but has never had a stent or balloon placed. - History Of Current Complaint Chief Complaint: EDDizziness Time Seen by Provider: 08/05/17 11:18 Hx Obtained From: Patient Onset/Duration: Still Present Timing: Constant Context: Other - no LOC Associated Signs And Symptoms: Other - chest pressure, left sided facial numbness, left sided BRAGG, and SOB. - Allergies/Home Medications Allergies/Adverse Reactions: Allergies Allergy/AdvReac Type Severity Reaction Status Date / Time lidocaine Allergy Difficulty Verified 06/22/17 04:34 Breathing MS Hydrocodone [Hydrocodone] Allergy Difficulty Verified 05/05/17 17:29 Breathing ENVIROMENTAL Allergy Difficulty Uncoded 07/28/16 10:09 Breathing PMH/Surg Hx/FS Hx/Imm Hx Cardiovascular History: Reports: Hx Angina, Hx Hypercholesterolemia, Hx Hypertension Respiratory History: Reports: Hx Asthma GI History: Reports: Hx Gastroesophageal Reflux Disease History: Reports: Hx Kidney Stones, Other Problems/Disorders - UTIs Psychiatric History: Reports: Hx Anxiety, Hx Depression - Surgical History Surgery Procedure, Year, and Place: EPTOPIC 2013 - Immunization History Date of Influenza Vaccine: 01/2017 Infectious Disease History: No Infectious Disease History: Denies: Traveled Outside the [place] in Last 30 Days - Family History Known Family History: Positive: Cardiac Disease, Hypertension, Diabetes - Social History Alcohol Use: Occasionally Hx Substance Use: No Substance Use Type: Reports: None Hx Tobacco Use: No Smoking Status (MU): Never Smoked Tobacco Review of Systems Positive: Chest Pain - chest pressure Positive: Shortness Of Breath Neurological: Other - left sided facial numbness Positive: Headache - left sided , Syncope - near All Other Systems Reviewed And Are Negative: Yes Physical Exam - Summary Physical Exam Summary: Appearance: Well appearing, no pain distress Skin: warm, dry, reflects adequate perfusion Head/face: normal Eyes: EOMI, LILIAN ENT: normal Neck: supple, non-tender Respiratory: CTA, breath sounds present Cardiovascular: RRR, pulses symmetrical Abdomen: non-tender, soft Bowel Sounds: present Musculoskeletal: normal, strength/ROM intact Neuro: sensory motor intact, A&Ox3, dicks hallpike test was negative Triage Information Reviewed: Yes Vital Signs On Initial Exam: Initial Vitals Temp Pulse Resp BP Pulse Ox 99.2 F 88 24 144/95 96 08/05/17 11:05 08/05/17 11:05 08/05/17 11:05 08/05/17 11:05 08/05/17 11:05 Vital Signs Reviewed: Yes Diagnostics - Vital Signs Vital Signs Temp Pulse Resp BP Pulse Ox 08/05/17 11:05 99.2 F 88 24 144/95 96 - Laboratory Lab Results: Lab Results 08/05/17 08/05/17 Range/Units 11:49 12:15 WBC 5.3 (3.5-10.8) 10^3/ul RBC 4.25 (4.0-5.4) 10^6/ul Hgb 13.0 (12.0-16.0) g/dl Hct 38 (35-47) % MCV 90 (80-97) fL MCH 31 (27-31) pg MCHC 34 (31-36) g/dl RDW 13 (10.5-15) % Plt Count 349 (150-450) 10^3/ul MPV 6.7 L (7.4-10.4) um3 Neut % (Auto) 58.8 (38-83) % Lymph % (Auto) 31.9 (25-47) % [place] % (Auto) 5.9 (0-7) % Eos % (Auto) 2.9 (0-6) % Baso % (Auto) 0.5 (0-2) % Absolute Neuts (auto) 3.1 (1.5-7.7) 10^3/ul Absolute Lymphs (auto) 1.7 (1.0-4.8) 10^3/ul Absolute Monos (auto) 0.3 (0-0.8) 10^3/ul Absolute Eos (auto) 0.2 (0-0.6) 10^3/ul Absolute Basos (auto) 0 (0-0.2) 10^3/ul Absolute Nucleated RBC 0 10^3/ul Nucleated RBC % 0.1 Sodium 138 L (139-145) mmol/L Potassium 3.2 L (3.5-5.0) mmol/L Chloride 103 (101-111) mmol/L Carbon Dioxide 25 (22-32) mmol/L Anion Gap 10 (2-11) mmol/L BUN 10 (6-24) mg/dL Creatinine 0.62 (0.51-0.95) mg/dL Est GFR ( Amer) 135.8 (>60) Est GFR (Non-Af Amer) 105.6 (>60) BUN/Creatinine Ratio 16.1 (8-20) Glucose 125 H (70-100) mg/dL Calcium 8.8 (8.6-10.3) mg/dL Troponin I 0.00 (<0.04) ng/mL Result Diagrams: 08/05/17 12:15 08/05/17 11:49 Lab Statement: Any lab studies that have been ordered have been reviewed, and results considered in the medical decision making process. - EKG 11:40 Cardiac Rate: NL EKG Rhythm: Sinus Rhythm - at 70BPM EKG Interpretation: nml axis, flipped T waves in lead 3 and AV, no ST elevations Re-Evaluation - Re-Evaluation First Eval Re-Evaluation Time: 13:21 Change: Improved Comment: All symptoms have resolved with medication. Pt is lying comfortable in the bed, she states she is tired. Course/Dx Course Of Treatment: Patient with rotational dizziness brought on by change of position. She has a history of angina and so she took nitroglycerin for this. This of course did not make it any better. Presently she has no significant symptoms. She was given hydration, Benadryl and meclizine with full resolution. Her laboratories including troponin and an EKG are all within normal limits. She will be prescribed meclizine and follow-up with her primary care provider. - Diagnoses Differential Diagnosis/HQI/PQRI: Positive: Vasovagal Episode, Other - Lightheadedness, anemia, vertigo, sinusitis, labyrinthitis Provider Diagnoses: Vertigo Discharge - Sign-Out/Discharge Documenting (check all that apply): Discharge/Admit/Transfer - Discharge Plan Condition: Good Disposition: HOME Prescriptions: Meclizine TAB* [Antivert 12.5 TAB*] 25 mg PO TID PRN #30 tab PRN Reason: vertigo/dizziness Patient Education Materials: Vertigo (ED) Referrals: Dana Black MD [Primary Care Provider] - Additional Instructions: Do not drive for 3 days or longer if not well. Hydrate well. Return with fever , new symptoms, trouble breathing or chest pain, worse or other concerns. - Billing Disposition and Condition Condition: GOOD Disposition: HOME The documentation as recorded by the Gigi milner Gabriel accurately reflects the service I personally performed and the decisions made by , Colby Mosquera MD.
== END 2017-08-05 13:34 | disposition home or self-care (01) ==
LOC: ED 10:54
DX: R42 Dizziness and giddiness (principal); Z87.442 Personal history of urinary calculi; E87.6 Hypokalemia; I10 Essential (primary) hypertension; E78.00 Pure hypercholesterolemia, unspecified; J45.909 Unspecified asthma, uncomplicated; K21.9 Gastro-esophageal reflux disease without esophagitis
CPT/HCPCS: 36415; 80048; 84484; 85025; 93005; 96360; 96374; 99282; A9270-GY; J1200

== ENCOUNTER 2017-10-10 22:13 | Emergency (ER) | payer OTHER ==
[2017-10-10 22:52] LABS: Urine Appearance Cloudy; Urine Blood 2+ (Negative); Urine Color Yellow; Urine Ketones Negative (Negative); Urine Protein Negative (Negative); Urine Specific Gravity 1.016 (1.010-1.030); Urine Urobilinogen Negative (Negative)
[2017-10-10] MEDS ORDERED: Ketorolac INJ* 30 MG/ML 1 ML VIAL IV ONE (23:11)
[2017-10-10] MEDS ORDERED: NS 0.9% 1000 ML* 1,000 ML IV ONE (23:13)
[2017-10-10] MEDS ORDERED: Metoclopramide IV* 5 MG/ML 2 ML VIAL IV SLOW PU ONE (23:13)
[2017-10-10 23:44] LABS: ABS Basophils 0.1 10^3/ul (0-0.2); ABS Eosinophils 0.2 10^3/ul (0-0.6); ABS Lymphocytes 2.4 10^3/ul (1.0-4.8); ABS Monocytes 0.5 10^3/ul (0-0.8); ABS Neutrophils 5.3 10^3/ul (1.5-7.7); ABS Nucleated RBC 0 10^3/ul; Eosinophil % 2.6 % (0-6); Hematocrit 36 % (35-47); Hemoglobin 12.5 g/dl (12.0-16.0); Lymphocyte % 28.6 % (25-47); Mean Corpuscular HGB Conc 35 g/dl (31-36); Mean Corpuscular Hemoglobin 31 pg (27-31); Mean Corpuscular Volume 89 fL (80-97); Mean Platelet Volume 6.7 um3 (7.4-10.4); Nucleated Red Blood Cells % 0; Platelet Count 343 10^3/ul (150-450); Red Blood Count 4.04 10^6/ul (4.00-5.40); Red Cell Distribution Width 13 % (10.5-15); White Blood Count 8.5 10^3/ul (3.5-10.8)
[2017-10-11] LABS: EGFR Non-African American 101.3 (>60)
[2017-10-11] MEDS ORDERED: Sulfamethox/Trimethoprim DS 800/160* TAB PO ONE (00:11)
[2017-10-11] MEDS ORDERED: Potassium Chlor TAB* 20 MEQ TAB.ER PO ONE (00:12)
[2017-10-11 00:28] VITALS: BP 123/85
--- NOTE | 2017-10-11 00:36 | ED ---
Goyo Pathak Tariq, scribed for Bibi Romo MD on 10/10/17 at 2340 . Abdominal Pain/Female - HPI Summary HPI Summary: A 42 y/o female pt presents to ED c/o sharp pains in the right flank. According to the patient, the sharp abdominal pains have been presents for the past four days being 9/10 in severity. Additional symptoms include vomiting and increased urination frequency, however she denies any fever or burning with urination. Patient believes it is a UTI. - History of Current Complaint Chief Complaint: EDFlankPain Stated Complaint: FLANK PAIN Time Seen by Provider: 10/10/17 22:56 Hx Obtained From: Patient Onset/Duration: Sudden Onset, Lasting Days - 4 days, Still Present Timing: Constant Severity Initially: Severe Severity Currently: Severe Pain Intensity: 9 Pain Scale Used: 0-10 Numeric Location: Flank - right flank Radiates: No Character: Sharp Aggravating Factor(s): Nothing Alleviating Factor(s): Nothing Associated Signs and Symptoms: Positive: Urinary Symptoms - Increased urination , however no burning with urination., Vomiting. Negative: Fever Allergies/Adverse Reactions: Allergies Allergy/AdvReac Type Severity Reaction Status Date / Time hydrocodone Allergy Difficulty Verified 10/10/17 22:20 Breathing lidocaine Allergy Difficulty Verified 06/22/17 04:34 Breathing ENVIROMENTAL Allergy Difficulty Uncoded 07/28/16 10:09 Breathing PMH/Surg Hx/FS Hx/Imm Hx Cardiovascular History: Reports: Hx Angina, Hx Hypercholesterolemia, Hx Hypertension Respiratory History: Reports: Hx Asthma GI History: Reports: Hx Gastroesophageal Reflux Disease History: Reports: Hx Kidney Stones, Other Problems/Disorders - UTIs Psychiatric History: Reports: Hx Anxiety, Hx Depression - Surgical History Surgery Procedure, Year, and Place: EPTOPIC 2013 - Immunization History Date of Influenza Vaccine: 01/2017 Infectious Disease History: No Infectious Disease History: Denies: Traveled Outside the [place] in Last 30 Days - Family History Known Family History: Positive: Cardiac Disease, Hypertension, Diabetes - Social History Alcohol Use: Occasionally Hx Substance Use: No Substance Use Type: Reports: None Hx Tobacco Use: No Smoking Status (MU): Never Smoked Tobacco Review of Systems Negative: Fever Positive: Abdominal Pain - sharp right flank pain, Vomiting Positive: frequency - Increased. Negative: burning All Other Systems Reviewed And Are Negative: Yes Physical Exam - Summary Physical Exam Summary: VITAL SIGNS: Reviewed. GENERAL: Patient is a well-developed and nourished FEMALE who is lying comfortable in the stretcher. Patient is not in any acute respiratory distress. HEAD AND FACE: No signs of trauma. No ecchymosis, hematomas or skull depressions. No sinus tenderness. EYES: PERRLA, EOMI x 2, No injected conjunctiva, no nystagmus. EARS: Hearing grossly intact. Ear canals and tympanic membranes are within normal limits. MOUTH: Oropharynx within normal limits. NECK: Supple, trachea is midline, no adenopathy, no JVD, no carotid bruit, no c- spine tenderness, neck with full ROM. CHEST: Symmetric, no tenderness at palpation LUNGS: Clear to auscultation bilaterally. No wheezing or crackles. CVS: Regular rate and rhythm, S1 and S2 present, no murmurs or gallops appreciated. ABDOMEN: Right lower quadrant tenderness. No signs of distention. No rebound no guarding, and no masses palpated. Bowel sounds are normal. EXTREMITIES: FROM in all major joints, no edema, no cyanosis or clubbing. NEURO: Alert and oriented x 3. No acute neurological deficits. Speech is normal and follows commands. SKIN: Dry and warm Triage Information Reviewed: Yes Vital Signs On Initial Exam: Initial Vitals Temp Pulse Resp BP Pulse Ox 99.4 F 88 20 154/93 96 10/10/17 22:17 10/10/17 22:17 10/10/17 22:17 10/10/17 22:17 10/10/17 22:17 Vital Signs Reviewed: Yes Diagnostics - Vital Signs Vital Signs Temp Pulse Resp BP Pulse Ox 10/10/17 22:17 99.4 F 88 20 154/93 96 - Laboratory Lab Results: Lab Results 10/10/17 Range/Units 22:40 Urine Color Yellow Urine Appearance Cloudy Urine pH 6.0 (5-9) Ur Specific [place] 1.016 (1.010-1.030) Urine Protein Negative (Negative) Urine Ketones Negative (Negative) Urine Blood 2+ A (Negative) Urine Nitrate Negative (Negative) Urine Bilirubin Negative (Negative) Urine Urobilinogen Negative (Negative) Ur Leukocyte Esterase Trace A (Negative) Urine WBC (Auto) Trace(0-5/hpf) (Absent) Urine RBC (Auto) Absent (Absent) Ur Squamous Epith Cells Present A (Absent) Urine Bacteria Absent (Absent) Urine Glucose Negative (Negative) Result Diagrams: 10/10/17 23:30 10/10/17 23:30 Lab Statement: Any lab studies that have been ordered have been reviewed, and results considered in the medical decision making process. - CT A/P CT CT Interpretation Completed By: Radiologist - There is no bowel obstruction, free air, or free fluid. Negative for diverticulitis or colitis. Normal appendix noted. Tiny nonobstructing right renal stone. No ureteral stone or urinary tract obstruction. Normal liver. Contracted gallbladder. Normal spleen. Normal pancreas. Normal adrenal glands. Osseous structures are intact. ED physician reviewed this radiology report. Re-Evaluation - Re-Evaluation First Eval Re-Evaluation Time: 00:16 Comment: DISCUSSED RESULTS AND DISCHARGE WITH PATIENT. Abdominal Pain Fem Course/Dx - Course Course Of Treatment: A 42 y/o female pt presents to ED c/o sharp pains in the right flank. According to the patient, the sharp abdominal pains have been presents for the past four days being 9/10 in severity. Additional symptoms include vomiting and increased urination frequency, however she denies any fever or burning with urination. A A/P CT revealed there is no bowel obstruction , free air, or free fluid. Negative for diverticulitis or colitis. Normal appendix noted. Tiny nonobstructing right renal stone. No ureteral stone or urinary tract obstruction. Normal liver. Contracted gallbladder. Normal spleen. Normal pancreas. Normal adrenal glands. Osseous structures are intact. In the ED course, the patient recieved Toradol, Reglan, Potassium Chloride, Bactrim and IV fluids. Patient will be discharged with a diagnosis of UTI. Patient is to follow up with primary care physician in 1-2 days. Pt is agreeable with this plan. - Diagnoses Provider Diagnoses: UTI (urinary tract infection) Discharge - Sign-Out/Discharge Documenting (check all that apply): Discharge/Admit/Transfer - DISCHARGE - Discharge Plan Condition: Stable Disposition: HOME Prescriptions: Ibuprofen TAB* [Motrin TAB* 800 MG] 800 mg PO Q6H PRN #30 tab PRN Reason: Pain Sulfamethox/Trimethoprim DS* [Bactrim DS 800/160 TAB*] 1 tab PO BID #10 tab Patient Education Materials: Urinary Tract Infection in Women (ED) Referrals: Dana Black MD [Primary Care Provider] - 2 Days (FOLLOW UP WITH PRIMARY CARE PHYSICIAN IN 1-2 DAYS.) Additional Instructions: RETURN TO ED FOR ANY NEW OR WORSENING SYMPTOMS. The documentation as recorded by the Goyo milner Tariq accurately reflects the service I personally performed and the decisions made by me, Bibi Romo MD.
--- NOTE | 2017-10-11 07:42 | RAD ---
CLINICAL HISTORY: Right lower quadrant pain. Medical history includes ectopic 2013 COMPARISON: CT abdomen pelvis July 28, 2016 TECHNIQUE: Noncontrast CT examination of the abdomen and pelvis from the lung bases through the initial tuberosities. FINDINGS: VISUALIZED LUNG BASES: The visualized lung bases are grossly clear. There is no pleural effusion. ABDOMEN AND PELVIS: Evaluation of the solid organs and vasculature is limited without intravenous contrast. The liver, spleen, pancreas and adrenal glands are grossly normal in appearance. The gallbladder is normal. At the mid-level right kidney there is a 2 mm nonobstructing renal calculus. Otherwise the kidneys are normal in appearance without focal mass, calcification or signs of hydronephrosis. Evaluation of the gastrointestinal tract is limited without oral contrast. The small and large bowel are not distended.The partially gas-filled appendix is identified in the right lower quadrant measuring 5 mm in diameter. There is no gross retroperitoneal or mesenteric lymphadenopathy. The pelvic viscera is normal in appearance. The abdominal aorta and iliac arteries are normal in course and diameter. Degenerative changes include mild multilevel loss of intervertebral disc height involving the lower thoracic and lumbar spine.There are no sinister bone lesions. IMPRESSION: 1. There is a nonobstructing renal calculus in the right kidney. There are no CT signs of obstructive uropathy. 2. Normal appendix.
== END 2017-10-11 00:27 | disposition home or self-care (01) ==
LOC: ED 22:13
DX: N39.0 Urinary tract infection, site not specified (principal); R10.84 Generalized abdominal pain
CPT/HCPCS: 36415; 74176; 80053; 81003; 81015; 83690; 84702; 85025; 86140; 87086; 96374; 96375; 99282; A9270-GY; J1885; J2765

== ENCOUNTER 2018-03-07 12:48 | Emergency (ER) | payer OTHER ==
[2018-03-07 14:08] LABS: ABS Basophils 0.1 10^3/ul (0-0.2); ABS Eosinophils 0.1 10^3/ul (0-0.6); ABS Lymphocytes 1.3 10^3/ul (1.0-4.8); ABS Monocytes 0.4 10^3/ul (0-0.8); ABS Neutrophils 4.3 10^3/ul (1.5-7.7); ABS Nucleated RBC 0 10^3/ul; Eosinophil % 1.9 %; Hematocrit 37 % (35-47); Hemoglobin 12.6 g/dl (12.0-16.0); Lymphocyte % 21.4 %; Mean Corpuscular HGB Conc 34 g/dl (31-36); Mean Corpuscular Hemoglobin 30 pg (27-31); Mean Corpuscular Volume 87 fL (80-97); Mean Platelet Volume 6.4 fL (7.4-10.4); Nucleated Red Blood Cells % 0; Platelet Count 427 10^3/ul (150-450); Red Blood Count 4.19 10^6/ul (4.00-5.40); Red Cell Distribution Width 12 % (10.5-15); White Blood Count 6.2 10^3/ul (3.5-10.8)
--- NOTE | 2018-03-07 14:18 | ED ---
HPI Chest Pain - HPI Summary HPI Summary: Patient is a 42 y/o F brought in by ambulance w/ c/o right chest pain with radiation around to back and right arm. She states that she has been experiencing chest pain for the past two weeks intermittently alongside palpitations. Patient also reports dizziness, pain with deep breaths, and "tremors" at her left leg. This morning, patient experienced onset of her chief complaint. Patient took 1 nitro, EMS gave 324 mg ASA. PMHx of HTN, angina. Hx of heart catheter. Patient reports pain was 10/10 at onset, 5/10 currently. Pain is described as a squeezing. She reports no similar episodes prior. Forest Ecologist is Dr. Castillo. On triage, nothing is noted to aggravate/alleviate Sx. Home medications and allergies are reviewed. - History of Current Complaint Time Seen by Provider: 03/07/18 13:00 Hx Obtained From: Patient Onset/Duration: Started Hours Ago - onset of chest pain with radiation to back and left leg, Started Weeks Ago - chest pain for the past two weeks intermittently alongside palpitations. Patient also reports dizziness, pain with deep breaths, and "tremors" at her left leg., Still Present Timing: Constant, Lasting Hours - onset of chest pain with radiation to back and left leg, Lasting Weeks - chest pain for the past two weeks intermittently alongside palpitations. Patient also reports dizziness, pain with deep breaths, and "tremors" at her left leg. Initial Severity: Severe - 10/10 Current Severity: Moderate - 5/10 Pain Intensity: 5 Pain Scale Used: 0-10 Numeric - 5/10 Chest Pain Location: Right Anterior Chest Pain Radiates: Yes Chest Pain Radiates To:: Back, Arm - right Character: Pressure/Squeezing Aggravating Factor(s): Nothing Alleviating Factor(s): Nothing Associated Signs and Symptoms: Positive: Chest Pain - with radiation to back pain and right arm, Dizziness, Palpitations, Other: - pain with deep breaths, tremors at left leg - Allergy/Home Medications Allergies/Adverse Reactions: Allergies Allergy/AdvReac Type Severity Reaction Status Date / Time hydrocodone Allergy Difficulty Verified 03/07/18 13:22 Breathing lidocaine Allergy Difficulty Verified 03/07/18 13:22 Breathing ENVIROMENTAL Allergy Difficulty Uncoded 07/28/16 10:09 Breathing Home Medications: Home Medications Fluticasone-Salmeterol 250-50* [Advair Diskus 250-50*] 1 puff INH BID 03/07/18 [ History Confirmed 03/07/18] PMH/Surg Hx/FS Hx/Imm Hx Cardiovascular History: Reports: Hx Angina, Hx Hypercholesterolemia, Hx Hypertension Respiratory History: Reports: Hx Asthma GI History: Reports: Hx Gastroesophageal Reflux Disease History: Reports: Hx Kidney Stones, Other Problems/Disorders - UTIs Psychiatric History: Reports: Hx Anxiety, Hx Depression - Surgical History Surgery Procedure, Year, and Place: EPTOPIC 2013 - Immunization History Date of Influenza Vaccine: 01/2017 - Family History Known Family History: Positive: Cardiac Disease, Hypertension, Diabetes - Social History Alcohol Use: Occasionally Hx Substance Use: No Substance Use Type: Reports: None Hx Tobacco Use: No Smoking Status (MU): Never Smoked Tobacco Review of Systems Positive: Other - POSITIVE - TREMORS AT LEFT LEG Positive: Palpitations, Chest Pain - radiation to back and right arm Positive: Other - pain with deep breaths Neurological: Other - POSITIVE - DIZZINESS All Other Systems Reviewed And Are Negative: Yes Physical Exam - Summary Physical Exam Summary: Appearance: Well-appearing, Well-nourished, lying in bed comfortably Skin: Warm, dry, no obvious rash Eyes: sclera anicteric, no conjunctival pallor ENT: mucous membranes moist, pharynx appears normal Neck: Supple, nontender Respiratory: Clear to auscultation, no signs of respiratory distress Cardiovascular: Normal S1, S2. No murmurs. Normal distal pulses in tibial and radial bilaterally. Abdomen: Soft, nontender, normal active bowel sounds present Musculoskeletal: Normal, Strength/ROM Intact Neurological: A&Ox3, awake and alert, mentation is normal, speech is fluent and appropriate Psychiatric: affect is normal, does not appear anxious or depressed Triage Information Reviewed: Yes Vital Signs On Initial Exam: Initial Vitals Temp Pulse Resp BP Pulse Ox 98.5 F 78 16 115/63 96 03/07/18 13:17 03/07/18 13:17 03/07/18 13:17 03/07/18 13:17 03/07/18 13:17 Vital Signs Reviewed: Yes Diagnostics - Laboratory Result Diagrams: 03/07/18 13:59 03/07/18 13:59 Lab Statement: Any lab studies that have been ordered have been reviewed, and results considered in the medical decision making process. - Radiology CXR Radiology Interpretation Completed By: Radiologist Summary of Radiographic Findings: CXR IMPRESSION: #. No evidence for acute intrathoracic disease. This report was reviewed by ED physician. - EKG 1312 Cardiac Rate: NL - rate of 79 bpm EKG Rhythm: Sinus Rhythm Summary of EKG Findings: Normal EKG: NSR at 79 BPM, P waves, QRS complex, and T waves are within normal limits, T waves and intervals are normal, no ischemic changes. This is a normal EKG Re-Evaluation - Re-Evaluation First Eval Re-Evaluation Time: 18:27 Comment: Patient will be discharged, patient is agreeable at this time. Chest Pain Course/Dx - Course Course Of Treatment: Patient is a 42 y/o F brought in by ambulance w/ c/o right chest pain with radiation around to back and right arm. She states that she has been experiencing chest pain for the past two weeks intermittently alongside palpitations. Patient also reports dizziness, pain with deep breaths, and "tremors" at her left leg. This morning, patient experienced onset of her chief complaint. Patient took 1 nitro, EMS gave 324 mg ASA. PMHx of HTN, angina. Hx of heart catheter. Patient reports pain was 10/10 at onset, 5/10 currently. Pain is described as a squeezing. She reports no similar episodes prior. Forest Ecologist is Dr. Castillo. Physical exam was normal. CXR IMPRESSION: #. No evidence for acute intrathoracic disease. Normal EKG: NSR at 79 BPM, P waves, QRS complex, and T waves are within normal limits, T waves and intervals are normal, no ischemic changes. This is a normal EKG. Review the patient's record of prior visits notes a number of visits for noncardiac chest pain as well as other somatic complaints. I do not have any record of any cardio vascular testing on her other than EKGs. Labs showed WBC 22.5, Hct 41, MCV 96, MCH 33, MPV 6.9, absolute neuts 19.5, absolute monos 1.8, INR 1.4, sodium 132, chloride 97, glucose 119, trop 0.03. During ED course, patient received fluids, morphine , cefazolin sodium/dextrose 1 gm in 50 mls @ 200 mls/hr IVPB ED ONCE ONE, and Vancomycin HCL 1000 mg in sodium chloride 250 mls @ 166.667 mls/hr IVPB ONCE ONE. Patient was discharged to home, she is agreeable with this plan. - Diagnoses Provider Diagnoses: Non-cardiac chest pain Discharge - Sign-Out/Discharge Documenting (check all that apply): Patient Departure - discharge - Discharge Plan Condition: Good Disposition: HOME Patient Education Materials: Noncardiac Chest Pain (ED) Referrals: Dana Black MD [Primary Care Provider] - Additional Instructions: Return to ED for any new or worsening symptoms. - Billing Disposition and Condition Condition: GOOD Disposition: Home - Attestation Statements Document Initiated by Rylee: Yes Documenting Scribe: UTE SMITH Provider For Whom Rylee is Documenting (Include Credential): JERMAN CASON MD Scribe Attestation: UTE Pathak , scribed for JERMAN CASON MD on 03/08/18 at 1018. Scribe Documentation Reviewed: Yes Provider Attestation: The documentation as recorded by the UTE milner accurately reflects the service I personally performed and the decisions made by JERMAN monroe MD Status of Scribe Document: Viewed
[2018-03-07 14:33] LABS: EGFR Non-African American 101.3 (>60)
[2018-03-07 18:47] VITALS: BP 114/71
== END 2018-03-07 18:48 | disposition home or self-care (01) ==
LOC: ED 12:48
DX: R07.9 Chest pain, unspecified (principal); M54.9 Dorsalgia, unspecified; K21.9 Gastro-esophageal reflux disease without esophagitis; Z87.442 Personal history of urinary calculi; R42 Dizziness and giddiness; R00.2 Palpitations; Z88.5 Allergy status to narcotic agent
CPT/HCPCS: 36415; 71046; 80053; 84443; 84484; 85025; 85379; 93005; 99284

== ENCOUNTER 2018-06-10 20:50 | Emergency (ER) | payer OTHER ==
[2018-06-10] MEDS ORDERED: Ketorolac INJ* 30 MG/ML 1 ML VIAL IV PUSH ONE (21:18)
--- NOTE | 2018-06-10 21:23 | ED ---
HPI Chest Pain - HPI Summary HPI Summary: This patient is a 42 year old F brought in by ambulance with a chief complaint of worsening intermittent CP since one week ago. The patient rates the pain 5/ 10 in severity. Patient reports left jaw numbness. The patient has low potassium , according to her PCP. She has been taking potassium pills as directed, but they are not helping her symptoms. The patient was diagnosed with angina in 2011 , with two catheterizations done. The patient had a stress test last year [place] [facility] and it was normal. This patient has been nitro for the past two days. PMHX angina, asthma, vertigo, HTN. Vitals in the room: HR 93 bpm, BP 128/75. - History of Current Complaint Chief Complaint: EDChestPainROMI Time Seen by Provider: 06/10/18 21:05 Hx Obtained From: Patient Onset/Duration: Started Weeks Ago - 1 Timing: Intermittent Current Severity: Moderate Pain Intensity: 5 Pain Scale Used: 0-10 Numeric Associated Signs and Symptoms: Positive: Chest Pain, Numbness - Allergy/Home Medications Allergies/Adverse Reactions: Allergies Allergy/AdvReac Type Severity Reaction Status Date / Time hydrocodone Allergy Difficulty Verified 06/10/18 21:01 Breathing lidocaine Allergy Difficulty Verified 06/10/18 21:01 Breathing ENVIROMENTAL Allergy Difficulty Uncoded 06/10/18 21:01 Breathing PMH/Surg Hx/FS Hx/Imm Hx Cardiovascular History: Reports: Hx Angina, Hx Hypercholesterolemia, Hx Hypertension Respiratory History: Reports: Hx Asthma GI History: Reports: Hx Gastroesophageal Reflux Disease History: Reports: Hx Kidney Stones, Other Problems/Disorders - UTIs Psychiatric History: Reports: Hx Anxiety, Hx Depression - Surgical History Surgery Procedure, Year, and Place: EPTOPIC 2013 - Immunization History Date of Influenza Vaccine: 01/2017 Immunizations Up to Date: Yes Infectious Disease History: No Infectious Disease History: Denies: Traveled Outside the [place] in Last 30 Days - Family History Known Family History: Positive: Cardiac Disease, Hypertension, Diabetes - Social History Alcohol Use: Rare Hx Substance Use: No Substance Use Type: Reports: None Hx Tobacco Use: No Smoking Status (MU): Never Smoked Tobacco Review of Systems Positive: Chest Pain Positive: Numbness - left jaw All Other Systems Reviewed And Are Negative: Yes Physical Exam - Summary Physical Exam Summary: VITAL SIGNS: Reviewed. GENERAL: Patient is a well-developed and nourished female who is lying comfortable in the stretcher. Patient is not in any acute respiratory distress. HEAD AND FACE: No signs of trauma. No ecchymosis, hematomas or skull depressions. No sinus tenderness. EYES: PERRLA, EOMI x 2, No injected conjunctiva, no nystagmus. EARS: Hearing grossly intact. Ear canals and tympanic membranes are within normal limits. MOUTH: Oropharynx within normal limits. NECK: Supple, trachea is midline, no adenopathy, no JVD, no carotid bruit, no c- spine tenderness, neck with full ROM. CHEST: Symmetric, no tenderness at palpation LUNGS: Clear to auscultation bilaterally. No wheezing or crackles. CVS: Regular rate and rhythm, S1 and S2 present, no murmurs or gallops appreciated. ABDOMEN: Soft, non-tender. No signs of distention. No rebound no guarding, and no masses palpated. Bowel sounds are normal. EXTREMITIES: FROM in all major joints, no edema, no cyanosis or clubbing. NEURO: Alert and oriented x 3. No acute neurological deficits. Speech is normal and follows commands. SKIN: Dry and warm Triage Information Reviewed: Yes Vital Signs On Initial Exam: Initial Vitals Temp Pulse Resp BP Pulse Ox 99.7 F 84 13 128/75 98 06/10/18 20:50 06/10/18 20:50 06/10/18 20:50 06/10/18 20:50 06/10/18 20:50 Vital Signs Reviewed: Yes Diagnostics - Vital Signs Vital Signs Temp Pulse Resp BP Pulse Ox 06/10/18 21:04 83 15 128/75 98 06/10/18 21:03 82 27 99 06/10/18 20:50 99.7 F 84 13 128/75 98 - Laboratory Result Diagrams: 06/10/18 21:36 06/10/18 21:36 Lab Statement: Any lab studies that have been ordered have been reviewed, and results considered in the medical decision making process. - EKG 20:58 Cardiac Rate: NL - 84 bpm EKG Rhythm: Sinus Rhythm EKG Comparison: No Significant Change - 03/07/18 Summary of EKG Findings: Multiple ST depressions in the inferior and lateral leads. Chest Pain Course/Dx - Course Course Of Treatment: This patient is a 42 year old F brought in by ambulance with a chief complaint of worsening intermittent CP since one week ago. The patient rates the pain 5/10 in severity. Patient reports left jaw numbness. An EKG reveals NSR 84 bpm, multiple ST depressions in the inferior and lateral leads, no change from 03/07/18. Test results with no significant abnormalities. In the ED course the patient was given Keterolac and Potassium Chloride. Patient will be discharged with follow up from Dr. Black. The patient is agreeable with this plan. - Diagnoses Provider Diagnoses: Atypical chest pain Discharge - Sign-Out/Discharge Documenting (check all that apply): Patient Departure - discharge Patient Received Moderate/Deep Sedation with Procedure: No - Discharge Plan Condition: Stable Disposition: HOME Patient Education Materials: Chest Pain (ED) Referrals: Dana Black MD [Medical Doctor] - 2 Days Additional Instructions: RETURN TO THE EMERGENCY DEPARTMENT FOR CHANGING OR WORSENING SYMPTOMS. FOLLOW UP WITH Dr. Black IN 1-2 DAYS. - Attestation Statements Document Initiated by Scribe: Yes Documenting Scribe: Adan Soler Provider For Whom Scribe is Documenting (Include Credential): Bibi Romo MD Scribe Attestation: Adan Pathak, scribed for Bibi Romo MD on 06/10/18 at 2224. Status of Scribe Document: Ready
--- OUTSIDE RECORDS SUMMARY | 2018-06-10 21:39 | XMS REPORT | Continuity of Care Document ---
:1975 External Reference #:[id number] Author Name Mila Lepe NP Address [address] [place] [address] Care Team Providers Name Role Phone Ross Puri MD Care Team Information Solution Sales Senior Executive Unavailable Ross Puri MD Primary Care Physician Unavailable Payers Date Identification Numbers Payment Provider Subscriber Effective: 2017 Policy Number: [id number] [facility] Eneida Garcia PayID: [id number] [address] [address] [place] [address] Advance Directives Description No Information Available Problems Description No Information Family History Date Family Member(s) Observation Comments : (age 50 Father due to Kidney Years) Disease Father due to () Alcoholism : (age 40 Mother due to AL Years) Children 5 healthy, some have asthma, ADHD, son has bipolar and schizophrenic Social History Type Date Description Comments Sex Unknown Marital Status Single Lives With Daughters Occupation Unemployed Tobacco Use Start: Unknown Never Smoked Cigarettes ETOH Use Denies alcohol use Recreational Drug Use Denies Drug Use Tobacco Use Start: Unknown Nonsmoker Smoking Status Reviewed: 11/23/17 Nonsmoker Currently Active Patient is currently sexually active Dom Violence Screen screening has been done Allergies, Adverse Reactions, Alerts Date Description Reaction Status Severity Comments 11/23/2017 Lidocaine throat closed Active 11/23/2017 Hydrocodone throat closed Active Medications Medication Date Status Form Strength Qnty SIG Indications Ordering Provider Sertraline HCL 05/03/ Active Tablets 100mg 30tab 1 by mouth Ross Vera 2018 s every day Rylan howell MD Spironolactone 03/16/ Active Tablets 25mg 30tab 1 by mouth Ross Vera 2017 s every Am Rylan howell MD Klor-Con M20 / Active Tablets ER 20Meq 2 by mouth Unknown 0000 every day Meclizine HCL / Active Tablets 25mg take 1 by Unknown 0000 mouth 3 times daily as needed for dizziness Amlodipine / Active Tablets 10mg 1 by mouth Unknown Besylate 0000 every day Isosorbide / Active Tablets ER 30mg 1 by mouth Unknown Mononitrate ER 0000 24HR every morning Nitroglycerin / Active Tablets 0.3mg 1 sl for Unknown 0000 Sub chest pain - repeat q 5min x3 - if no relief call 911 Buspirone HCL / Active Tablets 10mg take one Unknown 0000 tablet by mouth twice a day Aspirin 81 Low / Active Tablet 1 by mouth Unknown Dose 0000 every day Omeprazole / Active Capsules 20mg 1 by mouth Unknown 0000 DR qd prn Loratadine / Active Tablets 10mg 1 by mouth Unknown 0000 every day prn Atorvastatin / Active Tablets 40mg 1 by mouth Unknown Calcium 0000 every day Methyldopa / Active Tablets 250mg 1 by mouth Unknown 0000 twice a day Ventolin HFA / Active Aerosol 108(90Base take 2 Unknown 0000 ) mcg/Act puffs inhaled qid as needed Sertraline HCL / Hx Tablets 25mg 1 by mouth Unknown 0000 - every day / a 50mg 2018 tab Sertraline HCL / Hx Tablets 50mg 1 by mouth Unknown 0000 - every day / a 25mg 2018 tab Dulera / Hx Aerosol 200-5mcg/A 2 puff Unknown 0000 - ct twice a 2018 Immunizations Description No Information Available Vital Signs Date Vital Result Comment 06/01/2018 10:58am BP Systolic 120 mmHg BP Diastolic 80 mmHg Heart Rate 87 /min Body Temperature 98.2 F Respiratory Rate 16 /min Height 61.5 inches 5'1.50" Weight 176.00 lb BMI (Body Mass Index) 32.7 kg/m2 05/03/2018 2:10pm BP Systolic 134 mmHg BP Diastolic 68 mmHg Heart Rate 98 /min Body Temperature 99.5 F Respiratory Rate 16 /min Height 61.5 inches 5'1.50" Weight 177.00 lb BMI (Body Mass Index) 32.9 kg/m2 03/15/2018 4:12pm BP Systolic 120 mmHg BP Diastolic 74 mmHg Heart Rate 84 /min Body Temperature 100.2 F Respiratory Rate 16 /min Height 61.5 inches 5'1.50" Weight 178.12 lb BMI (Body Mass Index) 33.1 kg/m2 11/23/2017 10:04am BP Systolic 118 mmHg BP Diastolic 70 mmHg Heart Rate 72 /min Body Temperature 98.6 F Respiratory Rate 16 /min Height 61.5 inches 5'1.50" Weight 178.50 lb BMI (Body Mass Index) 33.2 kg/m2 Results Test Date Facility Test Result H/L Range Note Basic Metabolic 04/20/2018 [facility] ([facility] Sodium 141 mEq/L 134- 149 Profile Potassium 3.5 mEq/L Low 3.6-5.5 1 Chloride 104 mEq/L 94-112 Carbon Dioxide 29 mEq/L 21-32 Glucose 101 mg/dL 70-105 BUN 5 mg/dL Low 6-26 2 Creatinine 0.6 mg/dL 0.6-1.4 BUN/Creat Ratio 8.3 CALC 8.0-36.0 Calcium 9.2 mg/dL 8.6-10.2 GFR Non- >60 ml/min/1.73m^ >=60 GFR >60 ml/min/1.73m^ >=60 Basic Metabolic Profile 03/15/2018 [facility] ([facility]) Sodium 142 mEq/L 134-149 Potassium 3.0 mEq/L Low 3.6-5.5 3 Chloride 100 mEq/L 94-112 Carbon Dioxide 29 mEq/L 21-32 Glucose 94 mg/dL 70-105 BUN 9 mg/dL 6-26 Creatinine 0.7 mg/dL 0.6-1.4 BUN/Creat Ratio 12.9 CALC 8.0-36.0 Calcium 8.9 mg/dL 8.6-10.2 GFR Non- >60 ml/min/1.73m^ >=60 GFR >60 ml/min/1.73m^ >=60 Laboratory test 03/15/2018 [facility] ([facility]) Magnesium, Serum 1.7 mEq/L 1.2-2.1 finding Lipid Profile 11/23/2017 [facility] ([facility]) Cholesterol 175 mg/dL 120- 200 Triglycerides 131 mg/dL 30-200 HDL Cholesterol 48 mg/dL 30-85 LDL (Calculated) 101 CALC 0-129 VLDL Cholesterol 26 mg/dL 0-50 HDL Risk Factor 3.6 CALC 0.0-4.4 Laboratory test finding 11/23/2017 [facility] ([facility]) TSH 1.11 mIU/L 0.50-6.00 CBC Electronic [facility] 11/23/2017 [facility] ([facility]) WBC 7.0 x10^3/UL 4.0- 10.0 RBC 4.32 x10^6/UL 3.93-6.00 HGB 13.3 g/dL 12.0-17.0 HCT 38 % 35-50 MCV 88.2 fL 80.0-95.0 MCH 30.8 pg 25.6-32.2 MCHC 34.9 g/dL 32.2-36.0 RDW-CV 11.7 % 11.6-14.4 PLT 386 x10^3/UL 163-400 MPV 8.9 fL Low 9.4-12.4 [place]# 4.75 x10^3/UL 1.56-6.13 Lymph# 1.72 x10^3/UL 1.18-3.74 [place]# 0.31 x10^3/UL 0.24-0.82 Eos # 0.2 x10^3/UL 0.0-0.5 Baso # 0.02 x10^3/UL 0.01-0.08 [place]% 68.2 % 34.0-70.0 Lymph % 24.7 % 20.0-52.0 [place]% 4.4 % Low 5.0-12.0 Eos% 2.3 % 0.7-7.0 Baso% 0.3 % 0.1-1.2 Comprehensive Metabolic 11/23/2017 [facility] ([facility]) Sodium 138 mEq/L 134-149 Prof Potassium 3.9 mEq/L 3.6-5.5 Chloride 101 mEq/L 94-112 Carbon Dioxide 25 mEq/L 21-32 Glucose 127 mg/dL High 70-105 BUN 7 mg/dL 6-26 Creatinine 0.6 mg/dL 0.6-1.4 BUN/Creat Ratio 11.7 CALC 8.0-36.0 Calcium 9.4 mg/dL 8.6-10.2 Total Protein 7.3 g/dL 6.4-8.3 Albumin 4.7 g/dL 3.8-5.5 Globulin 2.6 g/dL 2.0-4.8 A/G Ratio 1.8 CALC 0.6-2.3 Alk. Phosphatase 58 U/L 30-110 Alt (SGPT) 11 U/L 7-35 Ast (Sgot) 11 U/L 5-34 Total Bilirubin 0.7 mg/dL 0.2-1.3 GFR Non- >60 ml/min/1.73m^ >=60 GFR >60 ml/min/1.73m^ >=60 Ua - Micro ([facility]) 11/23/2017 [facility] Appearance CLEAR (607)- - Color YELLOW Glucose, Urine ([facility]/CMC/CTX) NEG Bilirubin NEG Ketones NEG SP Grav 1.010 Blood TRACE-INTACT # PH 7.0 Protein NEG Urobil 1.0 Nitrite NEG Leukocytes ([facility]/CMC/Centrex) NEG Hyaline - /Lpf Granular - /Lpf WBC ([facility],Centrex) 0-1 # RBC 2-3 # Mucus ([facility]/CBC/Centrex) - /Lpf Epith OCC /Lpf # Bacteria RARE /Hpf # Amorphous ([facility]/CMC/Centrex) - /Lpf Crystals, Fluid ([facility]/CMC/CTX) - Z#Comments - Laboratory test 11/23/2017 [facility] Microalb, Random 5.9 mg/L 0.5 -37 finding (607)- - ([facility]/CMC/CTX) 1 RESULTS VERIFIED BY REPEAT ANALYSIS 2 RESULTS VERIFIED BY REPEAT ANALYSIS 3 RESULTS VERIFIED BY REPEAT ANALYSIS Procedures Description No Information Available Encounters Type Date Location Provider Dx Diagnosis Office Visit 05/03/2018 2:10p Main Office Ross Puri MD E87.6 Hypokalemia I10 Essential (primary) hypertension F41.9 Anxiety disorder, unspecified Office Visit 03/15/2018 3:45p Main Office Ross Puri MD E87.6 Hypokalemia I10 Essential (primary) hypertension R00.2 Palpitations Office Visit 11/23/2017 10:00a Main Office Rhoda Mckeon I10 Essential ( primary) JOSE JUAN Levi hypertension I20.9 Angina pectoris, unspecified F33.1 Major depressive disorder, recurrent, moderate F41.9 Anxiety disorder, unspecified E66.9 Obesity, unspecified E87.6 Hypokalemia R42 Dizziness and giddiness J45.909 Unspecified asthma, uncomplicated M25.559 Pain in unspecified hip R60.0 Localized edema R31.21 Asymptomatic microscopic hematuria Plan of Treatment Future Appointment(s):06/21/2018 12:40 pm - Ross Puri MD at Main [facility]1106/01/2018 - Mila Lepe, NPE87.6 HypokalemiaNew Labs:Basic Metabolic-[facility], Ordered: 06/01/18Comments:Will recheck cvcygF31.9 Anxiety disorder, unspecifiedComments:I would make no medication changes at this time.R00.2 PalpitationsComments:I want you to keep following up with your fuel testing technician.I10 Essential (primary) hypertensionComments:Pleasee discuss medication difficulties with Dr. Castillo at your next appointment.Call or return to the office if:* you get more than one blood pressure reading above 160/100 ( even if only one of the numbers is high)* you feel close to passing out or actually pass out* you have new or worsening swelling in the ankles, legs, hands , or face* you develop palpiatations or funny heartbeatsAllComments:1. Patient has been queried about patient's goals/preferences and functional/lifestyle goals at relevant visits. If relevant, describe: Has been discussed, noted above2. Treatment goals as explainedto the patient: see above3. Are there barriers to meeting treatment goals? Yes If Yes, please describe: Barriers include possible insurance limits, disease process, and difficulty with lifestyle changes4. Self-Management goals as described to the patient: Yes, see above As always, we strongly encourage a healthy diet and making physical activity a part of your every day life. If you have questions about how or where to start, please contact the office.
[2018-06-10 21:42] LABS: ABS Basophils 0.1 10^3/ul (0-0.2); ABS Eosinophils 0.2 10^3/ul (0-0.6); ABS Lymphocytes 2.1 10^3/ul (1.0-4.8); ABS Monocytes 0.5 10^3/ul (0-0.8); ABS Neutrophils 5.1 10^3/ul (1.5-7.7); ABS Nucleated RBC 0 10^3/ul; Eosinophil % 2.4 %; Hematocrit 38 % (35-47); Hemoglobin 12.8 g/dl (12.0-16.0); Lymphocyte % 26.2 %; Mean Corpuscular HGB Conc 34 g/dl (31-36); Mean Corpuscular Hemoglobin 30 pg (27-31); Mean Corpuscular Volume 88 fL (80-97); Mean Platelet Volume 6.6 fL (7.4-10.4); Nucleated Red Blood Cells % 0; Platelet Count 406 10^3/ul (150-450); Red Blood Count 4.34 10^6/ul (4.00-5.40); Red Cell Distribution Width 13 % (10.5-15)
[2018-06-10 22:15] LABS: Albumin 4.4 g/dL (3.2-5.2); Albumin/Globulin Ratio 1.5 (1-3); BUN/Creatinine Ratio 14.7 (8-20); Calcium 9.2 mg/dL (8.6-10.3); EGFR African American 114.3 (>60); EGFR Non-African American 94.4 (>60); Potassium 3.4 mmol/L (3.5-5.0); Total Bilirubin 0.4 mg/dL (0.2-1.0); Total Protein 7.4 g/dL (6.4-8.9)
[2018-06-10] MEDS ORDERED: Potassium Chlor TAB* 20 MEQ TAB.ER PO ONE (22:21)
[2018-06-10 22:54] VITALS: BP 137/82
== END 2018-06-10 22:57 | disposition home or self-care (01) ==
LOC: ED 20:50
DX: R07.89 Other chest pain (principal); R20.0 Anesthesia of skin; I20.9 Angina pectoris, unspecified; I10 Essential (primary) hypertension; Z88.4 Allergy status to anesthetic agent; Z88.5 Allergy status to narcotic agent; Z91.048 Other nonmedicinal substance allergy status; Z82.49 Family history of ischemic heart disease and other diseases of the circulatory system; Z83.3 Family history of diabetes mellitus
CPT/HCPCS: 36415; 80053; 84484; 85025; 93005; 96374; 99283; A9270-GY; J1885